=== PATIENT | female | born 1940 | race Caucasian/White ===

== ENCOUNTER → 2016-07-27 | Outpatient (CLI) | payer BC ==
[~2016-07-27] MED LIST: ASPI81TA28 PO; ATOR10TA88 PO; CALCTAB5 PO; CHOL100010 PO; LEVO75TA PO; MELA3TAB PO; MULT-513 PO
== END | disposition home or self-care (01) ==
LOC: C.PAPS 08:40
PROVIDERS: ATTEND Obstetrics & Gynecology
DX: Z12.4 Encounter for screening for malignant neoplasm of cervix (principal)

== ENCOUNTER → 2016-09-25 | Outpatient (CLI) | payer BC ==
[~2016-09-25] MED LIST changes: +ATOR10TA82 PO; -ATOR10TA88 PO
[2016-09-25 09:41] LABS: BASO ABS # 0.06 K/uL (0-0.2); COMPLETE YES; EOS % 4.7 %; HEMATOCRIT 38.2 % (37-47); IG% 0.2 %; LYMPH % 38.3 %; LYMPH ABS # 2.37 K/uL (1.2-3.4); MEAN CELL VOLUME 83.6 fL (80-100); MEAN CORPUSCULAR HEMOGLOBIN 27.1 pg (25-34); MEAN CORPUSCULAR HGB CONC 32.5 g/dl (32-36); MEAN PLATELET VOLUME 10.8 fL (7.4-10.4); NEUT % 45.8 %; PLATELET COUNT 373 K/uL (130-400); RED BLOOD COUNT 4.57 M/uL (4.2-5.4); WHITE BLOOD COUNT 6.18 K/uL (4.8-10.8)
[2016-09-25 10:09] LABS: ESTIMATED AVERAGE GLUCOSE 134 mg/dl; HA1C FLAG Normal (Normal)
[2016-09-25 10:31] LABS: ALT/SGPT 28 U/L (12-78); BLOOD UREA NITROGEN 16 mg/dl (7-18); BUN/CREATININE RATIO 18.9 (10-20); CALCIUM 8.8 mg/dl (8.5-10.1); CARBON DIOXIDE 29 mmol/L (21-32); CHLORIDE 108 mmol/L (98-107); CHOLESTEROL 196 mg/dl (0-200); CREATININE 0.84 mg/dl (0.60-1.20); GLUCOSE 107 mg/dl (70-99); POTASSIUM 3.9 mmol/L (3.5-5.1); SODIUM 143 mmol/L (136-145)
[2016-09-25 10:42] LABS: ALB/GLOB RATIO 1.1 (0.9-2); ALKALINE PHOSPHATASE 70 U/L (45-117); AST/SGOT 19 U/L (15-37); CHOLESTEROL/HDL RATIO 2.2; HDL CHOLESTEROL 90 mg/dl; LDL CHOLESTEROL CALCULATED 86 mg/dl; TRIGLYCERIDES 102 mg/dl (0-150); VERY LOW DENSITY LIPOPROT CALC 20 mg/dl
== END | disposition home or self-care (01) ==
LOC: C.LAB 07:36
PROVIDERS: ATTEND Internal Medicine Geriatric Medicine
DX: E78.5 Hyperlipidemia, unspecified (principal); E03.9 Hypothyroidism, unspecified; G62.9 Polyneuropathy, unspecified; E11.9 Type 2 diabetes mellitus without complications

== ENCOUNTER → 2016-10-17 | Outpatient (CLI) | payer BC ==
--- NOTE | 2016-10-19 18:23 | POLYSOMNOGRAPH REPORT ---
CLINICAL DATA: A 76-year-old female with BMI of 26.[address] Simon Atkins for evaluation of insomnia and fragmented sleep architecture. On the evening of 10/18/2016, a home sleep apnea test was performed using [employer] type 3 monitor. RECORDING RESULTS: Total recording time was 9.4 hours. The patient's monitoring time and estimated sleep time was 6.1 hours. RESPIRATORY DATA: Mild sleep apnea was documented. The CYNTHIA was 12.9. There were 18 obstructive and 19 central apneic episodes. There were 41 hypopneic episodes. The longest respiratory event was 44 seconds. OXIMETRY DATA: No significant hypoxemia was seen. Oxygen nicolas was 87%. Mean saturation was 93%. Time below 89% was 2 minutes. ELECTROCARDIOGRAM: Heart rates ranged from 58-49 beats per minute SNORING DATA: Snoring was recorded throughout the night. LINING STITCHER'S COMMENTS: Snoring was present throughout most of the test. Some hypopneas and apneas, many central were seen. There was some difficulty scoring the test due to a question of the accuracy of the thermisor in picking up the patient's breathing, due to the patient movement. It is unclear whether she was awake or asleep during the test. If there is any question as to whether this is inaccurate, an in-lab sleep study would be required to determine the presence or absence of significant PAIGE.. IMPRESSION: Mild sleep apnea with an respiratory event index of 12.9 without significant nocturnal hypoxemia. The accuracy of this home sleep apnea test is in question due to technical reasons as noted above. If sleep apnea is suspected as a significant problem, an in-lab sleep study may be needed to determine this. [facility] SYSTEM[facility]amzam
== END | disposition home or self-care (01) ==
LOC: C.NEUR 09:54
PROVIDERS: ATTEND Internal Medicine Geriatric Medicine
DX: G47.30 Sleep apnea, unspecified (principal); G47.00 Insomnia, unspecified; R06.83 Snoring; R09.02 Hypoxemia

== ENCOUNTER → 2016-10-30 | Outpatient (CLI) | payer BC | END | disposition home or self-care (01) | LOC: C.LAB 07:10 | PROVIDERS: ATTEND Internal Medicine Geriatric Medicine | DX: E03.9 Hypothyroidism, unspecified (principal) ==

== ENCOUNTER → 2016-11-13 | Outpatient (CLI) | payer BC ==
--- NOTE | 2016-11-13 16:16 | MAMMOGRAPHY REPORT ---
BILATERAL DIGITAL SCREENING MAMMOGRAM WITH CAD: 11/13/2016 CLINICAL HISTORY: Routine screening examination. TECHNIQUE: Bilateral CC and MLO views were obtained. Current study was also evaluated with a Compute r Aided Detection (CAD) system. COMPARISON: Comparison is made to exams dated: 11/11/2015 mammogram, 11/08/2014 mammogram, 11/06/2013 esa mogram, 11/05/2012 mammogram, 10/26/2011 mammogram, and 10/20/2010 mammogram - [facility]. BREAST COMPOSITION: There are scattered areas of fibroglandular density in both breasts. FINDINGS: There are stable scattered and grouped benign-appearing punctate microcalcifications, and m inimal vascular calcification within the left breast. No suspicious mass, architectural distortion o r cluster of microcalcifications is seen. IMPRESSION: ACR BI-RADS CATEGORY 1: NEGATIVE There is no mammographic evidence of malignancy. A 1 year screening mammogram is recommended. The pa tient will receive written notification of the results. Approximately 10% of breast cancers are not detected with mammography. A negative mammographic report should not delay biopsy if a clinically suggestive mass is present. Edith Henley M.D. ay/:11/13/2016 14:16:29 Affiliate Marketing Coordinator: Michelle Larry RT(R)(M), [facility] letter sent: Normal 1/2 BI-RADS Code: ACR BI-RADS Category 1: Negative
== END | disposition home or self-care (01) ==
LOC: C.MAMM 11:33
PROVIDERS: ATTEND Obstetrics & Gynecology
DX: Z12.31 Encounter for screening mammogram for malignant neoplasm of breast (principal)

== ENCOUNTER → 2016-11-29 | Outpatient (CLI) | payer BC | END | disposition home or self-care (01) | LOC: C.LAB1850 07:01 | PROVIDERS: ATTEND Physician Assistant Medical | DX: E03.9 Hypothyroidism, unspecified (principal) ==

== ENCOUNTER → 2016-12-20 | Outpatient (CLI) | payer BC ==
[~2016-12-20] MED LIST changes: -ATOR10TA82 PO; +ATOR10TA88 PO
--- NOTE | 2016-12-21 05:35 | PAP/PSG TECHNICIAN REPORT ---
[facility] Junior Art Director Polysomnogram Report Study name: None Report date: 12/21/2016 Study date: 12/20/2016 Referring Physician: SOSA HINDS M.D. Name: DELVIN VERGARA Interpreting Physician: Alexi Mead M.D. Date of : 1940 Junior Art Director: Martha Allen [facility]. Sex: Female Age: 76 StudyType: PSG Weight: 150 lbs Height: 76 years, Height 5' 5" Neck Circum: BMI: 24.96 Medications: Levothyroxine 100mcg, Atorvastatin 10mg, Vit D 3 100iu, ASA 81mg, Melatonin 3mg, Calcium 600mg, Magnesium, Zolpidem 10 mg(takes 1/2 when needed) Patient History Study started on room air with no ETCO2 monitoring in room 36. 76 yr old female here tonight for a possible split psg. She had a questionable HST and will be titrated with cpap if she qualifies for a split study per order. Her ESS=5/24. Neck circ=14.5inches. She did take 5 mg of Ambien at 10:30 pm. Parameters Monitored NPSG: E1-M2, E2-M1, Fp1-M2, Fp2-M1, F3-M2, F4-M2, F4-M1, C3-M2, C4-M2, C4-M1, O1-M2, O2-M2, O2-M1, T3-M2, T4-M1, P3-M2, P4-M1, CHIN1, CHIN2, HR, EKG, Legs, PFLOW, SNOR, FLOW, CFLOW, Tidal Volume, THOR, ABDO, SpO2, PLTH, CPRESS, ETCO2 Wave, ETCO2, pH Sleep Architecture Sleep Stages Time at Lights Off 10:47:40 PM STAGES Time (min.) TST (%) Time at Lights On 5:19:40 AM Wake 134.5 -- Total Recording Time (TRT) 382.00 min. N1 38.5 16 Total Sleep Period (TSP) 372.0 min. N2 158.5 64 Total Sleep Time (TST) 247.5min. N3 19.5 8 Awake Time 134.5 min. REM 31.0 13 Wake after Sleep Onset 134.0 min. Sleep Efficiency (SE) 65 % Sleep Onset Latency (KAYLIN) 10.5 min. Number of Stage 1 Shifts None Awakenings 23 Stage Changes 115 Number of REM periods 5 REM 31.0 13 REM Latency 113.5 min. NREM 216.5 87 Body Position Analysis Supine Right Left Side Prone Vertical Total Sleep Time (min.) 97.0 0.0 114.5 114.50 131.6 0.0 Total Sleep Time (%) 16% 0% 46% 46 38% N/A% Total Sleep Time REM (min.) 0.0 0.0 18.0 None 13.0 0.0 Total Sleep Time NREM (min.) 39.5 0.0 96.5 None 80.5 0.0 Intermittent Wake (min.) 57.5 11.3 27.6 None 38.1 0.0 Total Sleep Period (%) 23% None None None None None Arousals Myoclonus (PLM) * Events Count Index Events Count Index Spontaneous 15 4 Events Awake (PLMW) 238 106.2 Respiratory 30 7.3 Events Asleep w/ Arousal (PLMA) 119 28.8 PLM 116 29 Events Asleep w/o Arousal (PLMS) 529 128.2 Snoring 7 2 Total Asleep 648 157.1 Total 168 41 Total 886 139 Respiratory Analysis * CA OA MA CH H RERA Total Count 0 9 3 0 26 0 38 Index 0.0 2.2 0.7 0 6.3 0 9.2 Mean Duration 0.0 17.0 20.1 0.00 19.9 0.0 19.2 Longest Duration 0.0 26.4 23.0 0.00 23.0 0.0 33.0 Respiratory Event Summary Total Supine ~Supine Right Left Prone REM NREM Apneas Count 12 7 5 N/A 0 5 0 12 Index 2.9 11 1 N/A 0.0 3 0 3 Hypopneas (4% Desat) Count 26 18 8 N/A 2 6 1 25 Index 6.3 27.3 2 N/A 1.0 3.9 1.9 6.9 Apneas & All Hypopneas Count 38 25 13 N/A 2 11 1 37 Index 9.2 38 4 N/A 1 7 1.9 10.3 Respiratory Events (Ballistic Technician+All Hyp+RERA) Count 38 25 13 N/A 2 11 1 37 Index 9.2 38 4 N/A 1.0 7.1 1.9 10.3 Respiratory Related Arousal Count 30 25 10 N/A 1 9 0 30 Index 7.3 30 3 N/A 1 6 0 8 Snoring Analysis Supine Right Left Prone REM NREM Total Snore duration 24.9 min Snores count 216 N/A 55 422 38 655 693 Snore mean duration 2.2 Sec Snores index 328 N/A 29 271 73.5 181.5 168.0 TST with snoring (%) 10.0% Desaturation Event Summary: Minimum %SpO2 Event Count Mean/Min/Max Duration(sec.) Desaturation Index % Time In Bed > 90 85 25.8 / 10.3 / 59.5 21.2 64.5 86 - 90 19 23.0 / 10.3 / 53.3 8.7 35.4 81 - 85 0 N/A 0.0 0.1 76 - 80 0 N/A 0.0 0.0 71 - 75 0 N/A 0.0 0.0 66 - 70 0 N/A 0.0 0.0 61 - 65 0 N/A 0.0 0.0 56 - 60 0 N/A 0.0 0.0 51 - 55 0 N/A 0.0 0.0 < 50 0 N/A 0.0 0.0 Total REM NREM Awake <50% 0.0 min. 0.0 min. 0.0 min. 0.0 min. 51 - 60% 0.0 min. 0.0 min. 0.0 min. 0.0 min. 61 - 70% 0.0 min. 0.0 min. 0.0 min. 0.0 min. 71 - 80% 0.0 min. 0.0 min. 0.0 min. 0.0 min. 81 - 90% 132.0 min. 19.9 min. 92.1 min. 20.0 min. 91 - 100% 240.2 min. 11.1 min. 122.3 min. 106.7 min. Average 91 90 91 93 Minimum SpO2 82 86 84 82 Desaturation Event Index 13.7 7.7 11.4 18.7 # Desat. Events below 89% 33 2 23 8 Time(%) with Saturation below 89% 7.4 0.8 6.1 0.5 Time(min.) with Saturation below 89% 27.6 3.2 22.5 2.0 Time (mins) REM (mins) NREM (mins) % of TST SpO2 Below 90% 39 4 N35 25.0 SpO2 Below 88% 9 0 0 3 Heart Rate Analysis Min (bpm) Max (bpm) Average (bpm) Awake 44 127 54 NREM 45 127 53 REM 47 61 53 Overall 45 127 53 Supplemental O2 Values Minimum O2 level: None Value Start Time End Time Junior Art Director Comments Mrs. Vergara slept in the right, left, supine and prone positions. No cardiac arrhythmia noted. PLM's were noted. No bruxism noted. Snoring was noted and scored as a 2 on a scale of 1 through 5. (0=no snoring, 5=snoring loud enough to be heard through a closed door or down the abreu way) She awoke to use the restroom once during the night. She stated that she slept worse than when at home. She also stated when she awoke to use the restroom that "her legs had an ache that she couldn't really describe". She did not qualify for a split study. The final report will be interpreted and signed by a sleep physician. The completed physician report will then be placed in the patient medical record. Therapy (cm H2O) 0 TIB (min.) 382.0 TST (min.) 247.5 Sleep Onset (min.) 10.5 REM Onset From Sleep (min.) 113.5 Sleep Efficiency % 65 Wakefulness (%) 34 Wakefulness (min.) 134.5 NREM 1 (%) 16 NREM 1 (min.) 38.5 NREM 2 (%) 64 NREM 2 (min.) 158.5 NREM 3 (%) 8 NREM 3 (min.) 19.5 REM (%) 13 REM (min.) 31.0 # Arousals 168 Arousal Index 41 # Snore 693 Snore Index 168.0 AHI 9.2 AHI Supine 38 AHI Non-Supine 4 NREM AHI 10.3 REM AHI 1.9 RDI 9.2 # Obstructive Apnea 9 # Central Apnea 0 # Mixed Apnea 3 # Hypopneas 26 RERAs 0 Total Respiratory Events 41 Time Below SpO2 89% (min.) 25.7 Mean NREM SpO2 (%) 91 Mean REM SpO2 (%) 90 Mean Sleep SpO2 (%) 91 Min NREM SpO2 (%) 84 Min REM SpO2 (%) 86 Position Supine (min.) 97.0 Position Non-supine (min.) 208.0 LM Index Sleep 157.1 LM Index NREM 171.3 LM Index REM 58.1 Mean Heart Rate (bpm) 53 Min Heart Rate (bpm) 45
--- NOTE | 2016-12-24 16:07 | Sleep Study ---
Sleep Study Report Date of Service: December 20, 2016 Sleep Study Report Clinical data: The patient is a 76-year-old female with a BMI of 25 referred for evaluation of possible sleep apnea/PLMD. She had a home sleep study performed which was questionable. Her [place] sleepiness score is normal at 5/ 24. She does take Ambien and used 5 milligrams of Ambien on the evening of this sleep study. Sleep architecture: Total sleep period was 372 minutes. Total sleep time was 247.5 minutes divided between 216.5 minutes of non-REM sleep and 31 minutes of REM sleep. Sleep onset latency was 10.5 minutes. REM latency was 113.5 minutes. Sleep efficiency was 65 percent. Wake after sleep onset was elevated at 134 minutes. Sleep consisted of stage N1 16 percent, stage N2 64 percent, stage N3 8 percent, and REM 13 percent. Arousal data: 168 arousals were recorded for an index of 41 per hour. One hundred sixteen of these were due to PLMS events. PLM data: Severe PLMD was noted. There is 648 limb movements during sleep noted for an index of 157.1 per hour with an arousal index of 28.8 per hour Respiratory data: Mild sleep apnea was seen. The AHI was 9.2. There were 9 obstructive and 3 mixed apneic episodes. The longest apnea episode was 26.4 seconds. There were 26 hypopneas. The longest hypopnea was 23 seconds. Oximetry data: Mild nocturnal hypoxemia was seen. Oxygen nicolas was 84 percent during non-REM sleep. Mean saturation was 91 percent. Time below 88 percent was 9 minutes. EKG heart rate ranged from 45 to 127 beats per minute. No arrhythmias were noted. Rack Loader's comments: The patient slept in the right, left, supine, and prone positions. Snoring was moderate, rated 2 on a scale of 1 through 5. When she awoke to use the restroom, she stated that her legs ached severely. She did not qualify for a split night study. Impression: Mild sleep apnea/hypopnea with an AHI of 9.2 with severe PLMD. Recommendations: The patient could be considered for auto CPAP or a repeat sleep study with CPAP. Evaluation for iron deficiency with a ferritin level is recommended. Treatment for PLMD may be needed in addition to CPAP. Clinical correlation is needed. Copies To 1: Simon Atkins M.D.; Donya Patel
== END | disposition home or self-care (01) ==
LOC: C.NEUR 20:00
PROVIDERS: ATTEND Physician Assistant Medical
DX: G47.30 Sleep apnea, unspecified (principal); E11.9 Type 2 diabetes mellitus without complications; E03.9 Hypothyroidism, unspecified; G47.00 Insomnia, unspecified

== ENCOUNTER → 2017-01-11 | Outpatient (CLI) | payer BC | END | disposition home or self-care (01) | LOC: C.LABBC 13:03 | PROVIDERS: ATTEND Physician Assistant Medical | DX: G47.61 Periodic limb movement disorder (principal) ==

== ENCOUNTER → 2017-05-14 | Outpatient (CLI) | payer BC ==
[~2017-05-14] MED LIST changes: +ATOR10TA82 PO; -ATOR10TA88 PO
[2017-05-14 09:54] LABS: BLOOD UREA NITROGEN 16 mg/dl (7-18); CREATININE 0.78 mg/dl (0.60-1.20); GLUCOSE 99 mg/dl (70-99)
[2017-05-14 09:55] LABS: CALCIUM 9.3 mg/dl (8.5-10.1); CARBON DIOXIDE 31 mmol/L (21-32); CHLORIDE 105 mmol/L (98-107); POTASSIUM 3.9 mmol/L (3.5-5.1); SODIUM 140 mmol/L (136-145)
[2017-05-14 10:03] LABS: ESTIMATED AVERAGE GLUCOSE 131 mg/dl; HA1C FLAG Normal (Normal)
[2017-05-14 10:05] LABS: FERRITIN 27.4 ng/ml (8.0-388.0); THYROID STIMULATING HORMONE 0.275 uIu/ml (0.300-4.500)
[2017-05-14 10:16] LABS: CREATININE RANDOM URINE < 13.0 mg/dl
== END | disposition home or self-care (01) ==
LOC: C.LAB 07:15
PROVIDERS: ATTEND Physician Assistant Medical
DX: E03.9 Hypothyroidism, unspecified (principal); E11.9 Type 2 diabetes mellitus without complications; G47.61 Periodic limb movement disorder

== ENCOUNTER → 2017-07-22 | Outpatient (CLI) | payer BC | END | disposition home or self-care (01) | LOC: C.LABBC 11:04 | PROVIDERS: ATTEND Internal Medicine Geriatric Medicine | DX: E03.9 Hypothyroidism, unspecified (principal) ==

== ENCOUNTER → 2017-09-23 | Day surgery (SDC) | payer BC ==
[2017-09-12 08:02] VITALS: Ht 165.1 cm; Wt 68.2 kg
[~2017-09-23] VITALS: Ht 165.1 cm; Wt 68.2 kg
[~2017-09-23] MED LIST changes: -LEVO75TA PO; +LEVO88TA3 PO; +LIDOCAINE HCL 2% 2 ML VIAL (20MG/ML) ONE; -MULT-513 PO; +PROPOFOL IV EMULSION 10 MG/ML 20 ML VIAL IV ONE; +SODIUM CHLORIDE 0.9% 500ML 500 ML IV ONE
--- NOTE | 2017-09-23 09:53 | Endo History and Physical ---
History & Physical Date of Service: Sep 23, 2017. Chief Complaint: History of colon polyps Referring Physician: Simon Atkins History of Present Illness 76 yo CF who presents for colonoscopy secondary to history of colon polyps. Past Medical History High Cholesterol, Thyroid Disease Past Surgical History Hx Cardiac Surgery: No Hx Internal Defibrillator: No Hx Pacemaker: No Hx Abdominal Surgery: Yes (HYSTERECTOMY BSO) Hx Post-Op Nausea and Vomiting: No Hx Cancer Surgery: Yes (SUBTOTAL THYROIDECTOMY) Hx Thoracic Surgery: No Hx Orthopedic: No Hx Urinary Tract Surgery: Yes (D AND C X2) Family History None Social History Smoking Status: Never Smoker Hx Substance Use: No Hx Alcohol Use: Yes (2 A WEEK ) Allergies Coded Allergies: No Known Allergies (Unverified , 09/23/17) Current Medications Reported Home Medications Medications Dose Route/Sig Max Daily Dose Days Date Category Levothyroxine Sodium 88 Mcg Tab 1 Tab PO QAM 90 09/12/17 Reported Melatonin 3 Mg Tab 3 Mg PO HS 07/19/14 Reported Vitamin D (Cholecalciferol) 1,000 Inter.unit Tab 1,000 Inter.unit PO QAM 07/19/14 Reported Caltrate (Calcium) 600 Mg Tab 600 Mg PO BID 07/19/14 Reported Lipitor (Atorvastatin Calcium) 10 Mg Tab 10 Mg PO QAM 07/19/14 Reported Aspirin Ec (Aspirin) 81 Mg Tab 81 Mg PO QAM 07/19/14 Reported Vital Signs Weight (Kilograms): 68.18 Height (Feet): 5 Height (Inches): 5 Physical Exam General Appearance: WD/WN, no apparent distress Respiratory/Chest: Auscultation: breath sounds normal Cardiovascular: Heart Auscultation: RRR Abdomen: Bowel Sounds: normal Inspection & Palpation: soft, non-distended, no tenderness, guarding & rebound Assessment and Plan Assessment: 76 yo CF who presents for colonoscopy secondary to history of colon polyps. Plan: Proceed with colonoscopy.
--- NOTE | 2017-09-23 11:37 | Discharge Instructions ---
Endoscopy Patient Instructions Date / Procedure(s) Performed Sep 23, 2017. Colonoscopy Allergy Information Coded Allergies: No Known Allergies (Unverified , 09/23/17) Discharge Date / Findings Sep 23, 2017. Colon polyps Internal hemorrhoids Medication Instructions OK to resume all medications today as prescribed Reported Home Medications Medications Dose Route/Sig Max Daily Dose Days Date Category Levothyroxine Sodium 88 Mcg Tab 1 Tab PO QAM 90 09/12/17 Reported Melatonin 3 Mg Tab 3 Mg PO HS 07/19/14 Reported Vitamin D (Cholecalciferol) 1,000 Inter.unit Tab 1,000 Inter.unit PO QAM 07/19/14 Reported Caltrate (Calcium) 600 Mg Tab 600 Mg PO BID 07/19/14 Reported Lipitor (Atorvastatin Calcium) 10 Mg Tab 10 Mg PO QAM 07/19/14 Reported Aspirin Ec (Aspirin) 81 Mg Tab 81 Mg PO QAM 07/19/14 Reported Provider Instructions Activity Restrictions - No exercising or heavy lifting for 24 hours. - Do not drink alcohol the day of the procedure. - Do not drive a car or operate machinery until the day after the procedure. - Do not make any important decisions or sign important papers in 24 hours after the procedure. Following Day: - Return to full activity which may include returning to work/school. Diet Start your diet with liquids and light foods (jello, soup, juice, toast). Then eat your usual diet if not nauseated. Treatment For Common After Affects For mild abdominal pain, bloating, or excessive gas: - Rest - Eat lightly - Lie on right side Follow-Up Information Follow-up with Dr. Simon Atkins as scheduled Anesthesia Information What You Should Know You have had a procedure that required some medicine to reduce anxiety and discomfort. This treatment is called moderate sedation. After receiving the treatment, you may be sleepy, but you will be able to breathe on your own. The effects of the treatment may last for several hours. Follow these instructions along with Activity/Diet recommendations noted above: * Do NOT do anything where dizziness or clumsiness would be dangerous. * Rest quietly at home today, then you can be up and about tomorrow. * Have a responsible person stay with you the rest of today. * You may have had an I.V. today. If so, you may take the dressing off later today. Recommendations Call your doctor if: * Trouble breathing * Continuous vomiting for more than 24 hours * Temperature above 101 degrees * Severe abdominal pain or bloating * Pain not relieved by pain medicine ordered * There is increased drainage or redness from any incision * A large amount of rectal bleeding greater than 2-3 tablespoons. (If you had a polyp/s removed or have hemorrhoids, a small amount of blood - from the rectum is to be expected.) * You have any unanswered questions or concerns. IN THE EVENT OF A SERIOUS EMERGENCY, GO TO THE NEAREST EMERGENCY ROOM Your discharge instructions were prepared by provider Luke Cheney. Patient Instructions Signature Page Sabrina Vergara Patient (or Guardian) Signature/Date: I have read and understand the instructions given to me by my caregivers. Caregiver/RN/Doctor Signature/Date: The above-named patient and/or guardian has received patient instructions on this date. + Original Patient Signature Page (only) stays with chart. Please make copy for patient.
[2017-09-23 12:04] VITALS: BP 142/94; PULSE 52; O2SAT 98
--- NOTE | 2017-09-23 12:34 | Anesthesiology Progress Note ---
Anesthesia Post Op Note Date & Time Sep 23, 2017 at 12:33 Vital Signs Pain Intensity: 0 Vital Signs Past 12 Hours Date Time Temp Pulse Resp B/P (MAP) Pulse Ox O2 Delivery O2 Flow Rate FiO2 09/23/17 12:04 52 16 142/94 (110) 98 Room Air 09/23/17 11:49 53 16 115/54 (74) 98 Room Air 09/23/17 11:34 54 16 103/53 (70) 96 Room Air 09/23/17 10:04 36.3 55 18 148/64 (92) 97 Room Air Notes Mental Status: alert / awake / arousable, participated in evaluation Pt Amnestic to Procedure: Yes Nausea / Vomiting: adequately controlled Pain: adequately controlled Airway Patency, RR, SpO2: stable & adequate BP & HR: stable & adequate Hydration State: stable & adequate Anesthetic Complications: no major complications apparent
--- NOTE | 2017-09-23 13:17 | GI REPORT ---
Procedure Date: 09/23/2017 10:43 AM Procedure: Colonoscopy Indications: High risk colon cancer surveillance: Personal history of colonic polyps Medicines: Monitored Anesthesia Care Complications: No immediate complications. Estimated Blood Loss: Estimated blood loss: none. Procedure: Pre-Anesthesia Assessment: - Prior to the procedure, a History and Physical was performed, and patient medications and allergies were reviewed. The patient's tolerance of previous anesthesia was also reviewed. The risks and benefits of the procedure and the sedation options and risks were discussed with the patient. All questions were answered, and informed consent was obtained. Prior Anticoagulants: The patient has taken aspirin, last dose was 3 days prior to procedure. ASA Grade Assessment: II - A patient with mild systemic disease. After reviewing the risks and benefits, the patient was deemed in satisfactory condition to undergo the procedure. After I obtained informed consent, the scope was passed under direct vision. Throughout the procedure, the patient's blood pressure, pulse, and oxygen saturations were monitored continuously. The scope was introduced through the anus and advanced to the terminal ileum. The colonoscopy was performed without difficulty. The patient tolerated the procedure well. The quality of the bowel preparation was good. The terminal ileum, ileocecal valve, appendiceal orifice, and rectum were photographed. Findings: The perianal and digital rectal examinations were normal. Two sessile polyps were found in the transverse colon. The polyps were 4 to 7 mm in size. These polyps were removed with a hot snare. Resection and retrieval were complete. Multiple small-mouthed diverticula were found in the sigmoid colon. Non-bleeding internal hemorrhoids were found during retroflexion. The hemorrhoids were small. Impression: - Two 4 to 7 mm polyps in the transverse colon, removed with a hot snare. Resected and retrieved. - Diverticulosis in the sigmoid colon. - Non-bleeding internal hemorrhoids. Recommendation: - Resume previous diet. - Continue present medications. - Repeat colonoscopy for surveillance based on pathology results. - Return to primary care physician as previously scheduled. Luke Cheney DO 09/23/2017 11:48:12 AM This report has been signed electronically. Note Initiated On: 09/23/2017 10:43 AM I attest to the content of the Intraoperative Record and orders documented therein, exceptions below
== END | disposition home or self-care (01) ==
LOC: C.GI 08:58
PROVIDERS: ATTEND Internal Medicine
DX: Z86.010 Personal history of colon polyps (principal); K57.30 Diverticulosis of large intestine without perforation or abscess without bleeding; K64.8 Other hemorrhoids; D12.3 Benign neoplasm of transverse colon; G47.33 Obstructive sleep apnea (adult) (pediatric); E11.9 Type 2 diabetes mellitus without complications; Z90.710 Acquired absence of both cervix and uterus; Z98.890 Other specified postprocedural states; Z79.899 Other long term (current) drug therapy; Z79.82 Long term (current) use of aspirin

== ENCOUNTER → 2017-10-03 | Outpatient (CLI) | payer BC ==
[~2017-10-03] MED LIST changes: -LIDOCAINE HCL 2% 2 ML VIAL (20MG/ML) ONE; -PROPOFOL IV EMULSION 10 MG/ML 20 ML VIAL IV ONE; -SODIUM CHLORIDE 0.9% 500ML 500 ML IV ONE
[2017-10-03 13:04] LABS: BASO % 0.9 %; BASO ABS # 0.05 K/uL (0-0.2); EOS % 3.5 %; HEMATOCRIT 47.2 % (37-47); HEMOGLOBIN 16.3 g/dL (12.0-16.0); IG# 0.01 K/uL (0.00-0.02); LYMPH % 35.1 %; MEAN CELL VOLUME 90.4 fL (80-100); MEAN CORPUSCULAR HEMOGLOBIN 31.2 pg (25-34); MEAN CORPUSCULAR HGB CONC 34.5 g/dl (32-36); MEAN PLATELET VOLUME 10.8 fL (7.4-10.4); MONO % 8.6 %; MONO ABS # 0.49 K/uL (0.11-0.59); NEUT % 51.7 %; NEUT ABS # 2.95 K/uL (1.4-6.5); PLATELET COUNT 293 K/uL (130-400); RED CELL DISTRIBUTION WIDTH SD 43.4 fL (36.4-46.3)
[2017-10-03 14:32] LABS: BLOOD UREA NITROGEN 17 mg/dl (7-18); CREATININE 0.94 mg/dl (0.60-1.20); GLUCOSE 95 mg/dl (70-99)
[2017-10-03 14:33] LABS: ALT/SGPT 30 U/L (12-78); AST/SGOT 21 U/L (15-37); CALCIUM 9.4 mg/dl (8.5-10.1); CARBON DIOXIDE 31 mmol/L (21-32); CHOLESTEROL 220 mg/dl (0-200); POTASSIUM 4.2 mmol/L (3.5-5.1); SODIUM 139 mmol/L (136-145)
[2017-10-03 14:35] LABS: ALKALINE PHOSPHATASE 79 U/L (45-117); LDL CHOLESTEROL CALCULATED 120 mg/dl; TOTAL PROTEIN 7.9 gm/dl (6.4-8.2)
== END | disposition home or self-care (01) ==
LOC: C.LABBC 09:24
PROVIDERS: ATTEND Internal Medicine Geriatric Medicine
DX: E78.5 Hyperlipidemia, unspecified (principal); E03.9 Hypothyroidism, unspecified; E11.9 Type 2 diabetes mellitus without complications; G47.30 Sleep apnea, unspecified; G62.9 Polyneuropathy, unspecified